=== PATIENT | male | born 1965 | race Caucasian/White ===

== ENCOUNTER 2016-12-10 19:14 | Emergency (ER) | payer SELFPAY ==
[~2016-12-10] VITALS: Ht 182.9 cm; Wt 108.0 kg
[2016-12-10 19:16] VITALS: BP 178/115; PULSE 92; RESP 15; TEMP 98.6; O2SAT 94
[2016-12-10] MEDS ORDERED: NORV2.5T PO ×2 (20:12→21:11)
[2016-12-10] MEDS ORDERED: LISI10TA3 PO ×2 (20:12→21:11)
[2016-12-10] MEDS ORDERED: METO25TA3 PO (20:12)
[2016-12-10 21:04] VITALS: BP 177/105; PULSE 75; RESP 18; O2SAT 95
--- NOTE | 2016-12-10 21:12 | PD ---
HPI Chief Complaint: Hypertension Time Seen by Provider: 20:55 Travel History International Travel<30 days: No Contact w/Intl Traveler<30days: No Traveled to known affect area: No History of Present Illness HPI PATIENT IS OUT OF MEDICATIONS (LISINOPRIL, NORVASC AND ALBUTEROL) WHICH WERE GIVEN TO PATIENT UPON RELEASE FROM LONG-TERM. DOES NOT HAVE PRIMARY CARE AT THIS POINT. STATES THAT HE NEEDS A MONTH LONG REFILL SO THAT HE CAN ATTEMPT TO FIND PCP. PATIENT COMPLAINED OF HEADACHE, RINGING IN THE EARS, BUZZING SOUNDS TO EAR FOR PAST FEW HOURS WHICH CAUSED HIM CONCERN TO COME IN AND GET EVALUATED. DENIES LATERALIZING WEAKNESS, N/V/D/CP/ABD PAIN PCP: NONE SMOKER POSITIVE ALLERGY:NKDA PFS Past Medical History Cardiovascular Problems: Yes (HTN) COPD: Yes Hypertension: Yes Social History Alcohol Use: Yes (OCC) Tobacco Use: Yes (1.5 PPD) Substance Use: No Allergies-Medications (Allergen,Severity, Reaction): Coded Allergies: No Known Allergies (Unverified , 12/10/16) Reported Meds & Prescriptions Reported Meds & Active Scripts Active Norvasc (Amlodipine Besylate) 2.5 Mg Tab 5 Mg PO DAILY Lisinopril 10 Mg Tab 10 Mg PO DAILY Reported Metoprolol Tartrate 25 Mg Tab 25 Mg PO DAILY Review of Systems Except as stated in HPI: all other systems reviewed are Neg HENT: Positive: Headaches Cardiovascular: Positive: Other (HIGH BLOOD PRESSURE) Physical Exam Narrative GENERAL: SKIN: Warm and dry. HEAD: Atraumatic. Normocephalic. EYES: Pupils equal and round. No scleral icterus. No injection or drainage. ENT: No nasal bleeding or discharge. Mucous membranes pink and moist. NECK: Trachea midline. No JVD. CARDIOVASCULAR: Regular rate and rhythm. RESPIRATORY: No accessory muscle use. Clear to auscultation. Breath sounds equal bilaterally. GASTROINTESTINAL: Abdomen soft, non-tender, nondistended. MUSCULOSKELETAL: Extremities without clubbing, cyanosis, or edema. No obvious deformities. NEUROLOGICAL: Awake and alert. No obvious cranial nerve deficits. Motor grossly within normal limits. Five out of 5 muscle strength in the arms and legs. Normal speech. PSYCHIATRIC: Appropriate mood and affect; insight and judgment normal. Data Data Last Documented VS Vital Signs Date Time Temp Pulse Resp B/P (MAP) Pulse Ox O2 Delivery O2 Flow Rate FiO2 12/10/16 21:30 72 18 166/101 (122) 95 Room Air 12/10/16 19:16 98.6 Orders Orders Clonidine (Catapres) (12/10/16 21:15) Tramadol (Ultram) (12/10/16 21:15) Ct Brain W/O Iv Contrast(Rout) (12/10/16 ) MDM Medical Decision Making Medical Screen Exam Complete: Yes Emergency Medical Condition: Yes Medical Record Reviewed: Yes Differential Diagnosis ICH V TENSION VANG V SINUSITIS Narrative Course CT NEG FOR ANY ICH, HTN IMPROVED GREATLY WITH CLONIDINE AND CURRENTLY NO VANG UPON DISCHARGE, [place] PO AND AMBULATING ON HIS OWN Diagnosis Primary Impression: Hypertension Qualified Codes: I10 - Essential (primary) hypertension Additional Impressions: Medication refill SINUSITIS Patient Instructions: General Instructions, Sinusitis (ED) Scripts Ciprofloxacin (Cipro) 500 Mg Tab 500 MG PO BID for Infection, #14 TAB 0 Refills Prov: Wero Strickland MD 12/10/16 Amlodipine (Norvasc) 2.5 Mg Tab 5 MG PO DAILY for Blood Pressure Management, #30 TAB 0 Refills Prov: Wero Strickland MD 12/10/16 Lisinopril (Lisinopril) 10 Mg Tab 10 MG PO DAILY, #30 TAB 0 Refills Prov: Wero Strickland MD 12/10/16 Disposition: 01 DISCHARGE HOME Condition: Stable Wero Strickland MD Dec 10, 2016 21:12
[2016-12-10] MEDS ORDERED: traMADol HCL 50 MG TAB PO ONE (21:15)
[2016-12-10] MEDS ORDERED: cloNIDine HCL 0.1 MG TAB PO ONE (21:15)
[2016-12-10 21:30] VITALS: BP 166/101; PULSE 72; RESP 18; O2SAT 95
--- NOTE | 2016-12-10 22:14 | RADRPT ---
EXAM DATE/TIME: 12/10/2016 21:49 [facility] COMPARISON: No previous studies available for comparison. INDICATIONS : Cephalgia. RADIATION DOSE: 56.35 CTDIvol (mGy) MEDICAL HISTORY : Hypertension. SURGICAL HISTORY : None. ENCOUNTER: Initial ACUITY: 1 day PAIN SCALE: 8/10 LOCATION: cranial TECHNIQUE: Multiple contiguous axial images were obtained of the head. Using automated exposure control and adj ustment of the mA and/or kV according to patient size, radiation dose was kept as low as reasonably a chievable to obtain optimal diagnostic quality images. DICOM format image data is available electro nically for review and comparison. FINDINGS: CEREBRUM: The ventricles are normal for age. Focal encephalomalacia right occipital lobe. No evidence of midlin e shift, mass lesion, hemorrhage or acute infarction. No extra-axial fluid collections are seen. POSTERIOR FOSSA: The cerebellum and brainstem are intact. The 4th ventricle is midline. The cerebellopontine angle i s unremarkable. EXTRACRANIAL: The visualized portion of the orbits is intact. SKULL: The calvaria is intact. No evidence of skull fracture. CONCLUSION: 1. No acute intracranial abnormalities. 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 2. Fluid in right maxillary sinus characteristic of sinusitis. Mucosal thickening in the paranasal s inuses. Randolph Mcgarry MD on December 10, 2016 at 22:11 Board Certified Radiologist. This report was verified electronically.
[2016-12-10] MEDS ORDERED: CIPR-9 PO (22:32)
[2016-12-10 22:53] VITALS: BP 143/73
[2016-12-10] MEDS ORDERED: VENTAER INH ×2 (22:56→23:04)
== END 2016-12-10 23:07 | disposition home or self-care (01) ==
LOC: NEPD 19:14
DX: I10 Essential (primary) hypertension (principal); J32.9 Chronic sinusitis, unspecified; F17.200 Nicotine dependence, unspecified, uncomplicated; J44.9 Chronic obstructive pulmonary disease, unspecified
CPT/HCPCS: 70450; 99285

== ENCOUNTER 2017-07-18 22:19 | Emergency (ER) | payer SELFPAY ==
[~2017-07-18 22:19] MED LIST: AMLO5TAB2 PO; FLUT1SPR5 EACH NARE; HYDR-3516 PO; LISI10TA3 PO; METO25TA3 PO; NORV2.5T PO; PRED20 PO; VENTAER INH
[2017-07-19] MEDS ORDERED: LISI10TA3 PO (16:24)
[2017-07-19] MEDS ORDERED: METO25TA3 PO (16:24)
[2017-07-19] MEDS ORDERED: AMLO5TAB2 PO (16:24)
[2017-07-19] MEDS ORDERED: IBUP1TAB7 PO (16:24)
== END 2017-07-18 22:35 | disposition left against medical advice (07) ==
LOC: NED 22:19
DX: Z53.21 Procedure and treatment not carried out due to patient leaving prior to being seen by health care provider (principal)
CPT/HCPCS: 99281

== ENCOUNTER 2017-07-19 12:18 | Emergency (ER) | payer SELFPAY ==
[~2017-07-19] VITALS: Ht 182.9 cm; Wt 100.0 kg
[2017-07-19 13:03] VITALS: BP 154/102; PULSE 61; RESP 15; TEMP 97.5; O2SAT 96
--- NOTE | 2017-07-19 16:04 | RADRPT ---
EXAM DATE/TIME: 07/19/2017 15:48 [facility] COMPARISON: No previous studies available for comparison. INDICATIONS : Water heater fell on patient 1 week ago, pain in left shoulder, unable to raise left arm, very limite d range of motion due to pain MEDICAL HISTORY : Hypertension. Chronic obstructive pulmonary disease. SURGICAL HISTORY : None. ENCOUNTER: Initial ACUITY: 1 week PAIN SCORE: 10/10 LOCATION: Left shoulder FINDINGS: Multiple view examination of the left shoulder demonstrates no evidence of fracture or dislocation. The glenohumeral and acromioclavicular joints are maintained. There is normal range of motion betwee n internal and external rotation. Bony mineralization is normal. CONCLUSION: No acute osseous injury or significant degenerative changes. Zak Crane MD on July 19, 2017 at 16:02 Board Certified Radiologist. This report was verified electronically.
--- NOTE | 2017-07-19 16:20 | PD ---
HPI Chief Complaint: Injury Time Seen by Provider: 15:39 Travel History International Travel<30 days: No Contact w/Intl Traveler<30days: No Traveled to known affect area: No History of Present Illness HPI 52 YO M with PMH of HTN, COPD presents to the ED for evaluation of 1 week historyof 10 left shoulder pain. Worsened by attempted ROM. No alleviating factors reported. Onset after the patient attempted to catch a hot water heater that was falling over. Endorses weakness and limited ROM. He states that he is unable to lift the arm above shoulder height. Patient denies numbness, tingling. He denies previous injury to the extremity. He also requests multiple medication refills. PFSH Past Medical History Cardiovascular Problems: Yes (HTN) COPD: Yes Hypertension: Yes Respiratory: Yes (COPD) Past Surgical History Other Surgery: Yes (HERNIA) Social History Alcohol Use: Yes (OCC) Tobacco Use: Yes (1.5 PPD) Substance Use: No Allergies-Medications (Allergen,Severity, Reaction): Coded Allergies: No Known Allergies (Unverified Adverse Reaction, Unknown, 07/19/17) Reported Meds & Prescriptions Reported Meds & Active Scripts Active Ibuprofen 800 Mg Tab 800 Mg PO Q8H PRN Amlodipine (Amlodipine Besylate) 5 Mg Tab 5 Mg PO DAILY Lisinopril 10 Mg Tab 10 Mg PO DAILY Metoprolol Tartrate 25 Mg Tab 25 Mg PO DAILY Hydrocodone-Acetamin 5-325 mg (Hydrocodone/Acetaminophen) 5 Mg-325 Mg Tablet 1 Tab PO Q8HR PRN Flonase Nasal Murphy (Fluticasone Nasal Murphy) 50 Mcg/Act Murphy 100 Mcg EACH NARE BID Prednisone 20 Mg Tab 20 Mg PO BID 5 Days Ventolin Hfa 18 GM Inh (Albuterol Sulfate) 90 Mcg/Act Aer 2 Puff INH Q4-6H PRN Ventolin Hfa 18 GM Inh (Albuterol Sulfate) 90 Mcg/Act Aer 2 Puff INH Q4-6H PRN Norvasc (Amlodipine Besylate) 2.5 Mg Tab 5 Mg PO DAILY Lisinopril 10 Mg Tab 10 Mg PO DAILY Review of Systems Except as stated in HPI: all other systems reviewed are Neg Physical Exam Narrative GENERAL: Well-nourished, well-developed white male in no acute distress. SKIN: Focused skin assessment warm/dry. HEAD: Normocephalic. EYES: No scleral icterus. No injection or drainage. NECK: Supple, trachea midline. No JVD or lymphadenopathy. CARDIOVASCULAR: Regular rate and rhythm without murmurs, gallops, or rubs. RESPIRATORY: Breath sounds equal bilaterally. No accessory muscle use. GASTROINTESTINAL: Abdomen soft, non-tender, nondistended. MUSCULOSKELETAL: No cyanosis, or edema. FOCUSED LEFT UPPER EXTREMITY EXAM: 2+ radial pulse. No tenderness to palpation of the shoulder. Drop test positive. Pain elicited with attempted external rotation. Weakness noted with attempted resisted abduction. Neurovascularly intact distally. BACK: Nontender without obvious deformity. No CVA tenderness. Data Data Last Documented VS Vital Signs Date Time Temp Pulse Resp B/P (MAP) Pulse Ox O2 Delivery O2 Flow Rate FiO2 07/19/17 13:03 97.5 61 15 154/102 (119) 96 Orders Orders Shoulder, Complete (>2vws) (07/19/17 15:36) Ice/Cold Pack (07/19/17 15:36) Albuterol Hfa Inh (Proair Hfa Inh) (07/19/17 16:30) Acetamin-Hydrocod 325-5 Mg ([place] 5-325 (07/19/17 16:30) ^ Sling (07/19/17 16:20) Mandatory Outpatient Referral (07/19/17 16:32) Ed Discharge Order (07/19/17 16:32) [facility] Medical Decision Making Medical Screen Exam Complete: Yes Emergency Medical Condition: Yes Differential Diagnosis Musculoskeletal pain versus muscle strain versus rotator cuff injury versus medication refill versus other Narrative Course 52 YO M with PMH of HTN, COPD presents to the ED for evaluation of 1 week history of 10/10 left shoulder pain. Worsened by attempted ROM. No alleviating factors reported. Onset after the patient attempted to catch a hot water heater that was falling over. Endorses weakness and limited ROM. He states that he is unable to lift the arm above shoulder height. He also requests multiple medication refills. Vitals reviewed. Patient hypertensive on presentation. On exam drop test positive, weakness noted with attempted resisted abduction. Pain elicited with external rotation. X-ray reveals no acute bony injury. I suspect rotator cuff injury. Mandatory outpatient consult was placed with orthopedics. Patient was prescribed a sling, short course of anti- inflammatories. I also refilled his antihypertensive medications. Patient's instructed to resume them as previously prescribed, follow with the [place] [facility]. He indicated understanding of the outpatient referral process and is agreeable to care plan. The patient is stable and discharged home. Diagnosis Primary Impression: Right shoulder injury Qualified Codes: S49.91XA - Unspecified injury of right shoulder and upper arm , initial encounter Additional Impressions: Rotator cuff arthropathy of left shoulder Medication refill Referrals: Orthopedist Additional Instructions: Rest, ice the extremity. Apply ice no longer than 10-15 minutes per hour a few times a day. 800 mg ibuprofen up to 3 times a day as needed for pain. Return to normal, gentle activity as tolerated. No heavy lifting or excessive overuse until cleared by orthopedist. Mandatory outpatient consult has been placed on your behalf. Someone from the hospital or doctor's office will contact you in a week to schedule follow-up. If no one contacts you call the patient assistance program. Resume antihypertensive medications as previously prescribed. Return to the ED for any urgent or emergent medical condition. Med/Other Pt SpecificInfo: Prescription(s) given Scripts Ibuprofen (Ibuprofen) 800 Mg Tab 800 MG PO Q8H Y for Pain/Inflammation, #15 TAB 0 Refills Prov: Franck Foley MD 07/19/17 Amlodipine (Amlodipine) 5 Mg Tab 5 MG PO DAILY for Blood Pressure Management, #30 TAB 2 Refills Prov: Franck Foley MD 07/19/17 Lisinopril (Lisinopril) 10 Mg Tab 10 MG PO DAILY, #30 TAB 2 Refills Prov: Franck Foley MD 07/19/17 Metoprolol Tartrate (Metoprolol Tartrate) 25 Mg Tab 25 MG PO DAILY, #30 TAB 0 Refills Prov: Franck Foley MD 07/19/17 Disposition: 01 DISCHARGE HOME Condition: Stable Jie Gibson July 19, 2017 16:20
[2017-07-19] MEDS ORDERED: AMLO5TAB2 PO (16:24)
[2017-07-19] MEDS ORDERED: LISI10TA3 PO (16:24)
[2017-07-19] MEDS ORDERED: METO25TA3 PO (16:24)
[2017-07-19] MEDS ORDERED: IBUP1TAB7 PO (16:24)
[2017-07-19] MEDS ORDERED: ALBUTEROL SULFATE 90 MCG/ACT HFA 8 GM INHALER INH ONE (16:30)
[2017-07-19] MEDS ORDERED: ACETAMINOPHEN/HYDROcodone 325 MG/5 MG TAB PO ONE (16:30)
== END 2017-07-19 16:42 | disposition home or self-care (01) ==
LOC: NEPK 12:18
DX: M25.512 Pain in left shoulder (principal); S49.91XA Unspecified injury of right shoulder and upper arm, initial encounter; I10 Essential (primary) hypertension; F17.200 Nicotine dependence, unspecified, uncomplicated; J44.9 Chronic obstructive pulmonary disease, unspecified; X50.0XXA Overexertion from strenuous movement or load, initial encounter; Y93.89 Activity, other specified
CPT/HCPCS: 73030; 99283